=== PATIENT | male | born 1940 | race Caucasian/White ===

== ENCOUNTER 2016-09-07 01:39 | Inpatient (IN) | payer OTHER ==
[~2016-09-07] VITALS: Ht 177.8 cm; Wt 83.9 kg
--- NOTE | ~2016-09-07 | HC ---
[facility] [place] [address] CONSULTATION Name: JOSE VELIZ Shavon Room #: 430-P [facility]..#: [id number] Admission: 09/07/16 Attend Phys: Tao Colmenares Discharge: 09/15/16 Date of : 44 Report #: [id number] THIS REPORT FOR: //name// CC: Tao Olivareselle Nubia DATE OF SERVICE: 09/10/2016 CHIEF COMPLAINT: Abdominal pain. REASON FOR CONSULTATION: Gallstones. HISTORY OF PRESENT ILLNESS: The patient is a very pleasant 76-year-old gentleman, who was admitted on 09/07/2016 with upper abdominal pain. He has previous history of right-sided colon cancer, status post right hemicolectomy approximately one year ago by Dr. Herring. The patient did not require adjuvant chemotherapy. He was scheduled to undergo colonoscopy in the near future was Dr. Denson with whom he follows. Upon admission, the patient had reported constant abdominal pain for approximately one week as well as nausea and emesis. He did complain of some loose stools, which he reports are chronic for him and he has had a loose stool for the most part since his right hemicolectomy one year ago. The patient had been placed on Cipro by primary care physician, the patient had denied fevers, chills, nausea, chest pain, shortness of breath, productive cough or hemoptysis. During his workup on this admission, he had undergone CT scan of the abdomen and pelvis with contrast. This showed surgical changes consistent with hemicolectomy, moderate stool was noted in the transverse colon, small hiatal hernia was noted, mild ileus was suggested, descending colon and sigmoid colon were noted to be decompressed. The patient was noted to have a mild leukocytosis of 12.4 thousand upon admission. Hemoglobin was 13.7, platelets are 175. In the process of his workup, C. difficile toxin was tested on 09/08/2016. This was positive for C. difficile colitis. He was also noted to be campylobacter antigen positive. Gastric biopsies had shown mild gastritis. The patient was placed on oral vancomycin and kept on IV Cipro. Also during his workup, he had undergone abdominal ultrasound, which showed cholelithiasis without bile duct dilatation. No pericholecystic fluid was noted. No thickening of the gallbladder wall was noted. Common bile duct measured up to 0.69 cm. No free fluid was noted. General Surgery was consulted regarding the gallstones and potential for cholecystitis. PAST MEDICAL HISTORY: Positive for hypertension, hyperlipidemia, gastroesophageal reflux disease, right-sided colon cancer, status post right hemicolectomy in September [address] Herring. The patient also has history of upper midline ventral incisional hernia, which is symptomatic, this has been observed by the patient and his surgeon and there had been discussion whether this would be repaired at some point in the future, history of small hiatal hernia. Positive for gastroesophageal reflux disease, hyperlipidemia, history [address] [address] CONSULTATION Name: JOSE VELIZ Room #: 430-P [facility] IN .R.#: [id number] Admission: 09/07/16 Attend Phys: Tao Colmenares Discharge: 09/15/16 Date of : 44 Report #: [id number] of skin cancer. ALLERGIES: Include BUTALBITAL, HYDROCODONE, METHYLPREDNISOLONE, TRAMADOL. HOME MEDICATIONS: Included Tylenol, lisinopril, aspirin, multivitamin, vitamin C, omeprazole, Motrin. PAST SURGICAL HISTORY: Positive for right hemicolectomy in September 2015 with primary anastomosis, right shoulder surgery, sinus surgery, right testicular biopsy, wisdom teeth extraction. FAMILY HISTORY: Father with history of colon cancer. Maternal history of gallbladder issues. SOCIAL HISTORY: Negative for tobacco, ETOH or drug use. REVIEW OF SYSTEMS: GENERAL: No fevers, chills or unwanted weight loss. HEENT: No dysphagia or odynophagia. Positive for headache. CARDIOVASCULAR: No chest pain or palpitation. PULMONARY: No productive cough, no hemoptysis. GASTROINTESTINAL: Positive for upper abdominal pain, nausea and vomiting. Negative for constipation, hematochezia or melena. History of chronic loose stools reported by the patient. MUSCULOSKELETAL: Positive for back pain. Negative for joint swelling. NEUROLOGIC: Negative for focal tingling, weakness or numbness. CUTANEOUS: Negative for rashes or skin lesions. ENDOCRINE: No heat or cold intolerance. HEMATOLOGIC: No easy bruising or spontaneous epistaxis. PHYSICAL EXAMINATION: GENERAL: The patient is awake, alert and oriented. He is in no acute distress. He is appropriate of conversation and fluent of speech. Normal mood and affect. HEENT: Head is atraumatic and normocephalic. Oral cavity: Shows mucosa that is slightly dry. No icterus is appreciated. CRANIAL NERVES: Intact and symmetric bilateral. NECK: Supple, without lymphadenopathy. LUNGS: Clear to auscultation. HEART: Regular, without murmur. ABDOMEN: Soft and mildly tender to palpation in the upper midline, right upper quadrant and left upper quadrant. No rebound or guarding is appreciated. No García sign, well-healed midline incision with reproducible ventral hernia with Valsalva. This is easily reducible and nontender to palpation at this time. EXTREMITIES: Well-perfused. No clubbing, cyanosis or edema. LABORATORY STUDIES: Reviewed. White count of 9.4 thousand at this time, hemoglobin 12.6, platelets of 191. Creatinine of 1.0, BUN of 14, sodium 140, potassium 3.8. Other laboratory studies as described in history of present illness. IMPRESSION: 1. 76-year-old male patient with newly diagnosed Clostridium [facility] [address] [place] [address] CONSULTATION Name: JOSE VELIZ Shavon Room #: 430-P [facility] IN ..#: [id number] Admission: 09/07/16 Attend Phys: Tao Colmenares Discharge: 09/15/16 Date of : 42 Report #: [id number] difficile colitis, with previous history of right-sided colon cancer, status post right hemicolectomy one year ago. Gallstones noted on ultrasound, although no pericholecystic fluid or gallbladder wall thickening and normal white blood cell count at this time. Low index of suspicion for acute cholecystitis given these above-mentioned findings. We will obtain PIPIDA scan to evaluate for filling of the gallbladder with nuclear radiotracer, which would essentially rule out cholecystitis. 2. Should the patient have persistent right upper quadrant pain once Clostridium difficile colitis has been fully treated, would consider evaluation as an outpatient for potential cholecystectomy. PIPIDA scan should yield excellent information as far as whether this would be beneficial. No plan for immediate surgical intervention in this case. Consultation very much appreciated. We will continue to follow closely and make further recommendations based upon clinical status and laboratory studies. <ELECTRONICALLY SIGNED> By: Mika Barrera MD 09/22/16 1007 1612 2313 Mika Barrera MD /jono
--- NOTE | ~2016-09-07 | S ---
[facility] [place] [address] SURGICAL PATH RPT PROCEDURE Name: NATHANAEL FLORES Room #: 219-P ADM IN M.R.#: [id number] Admission: 09/07/16 Date of : 42 Discharge: Report #: [id number] Path Case #: [id number] PATHOLOGY REPORT COLLECTION DATE: 09/08/2016 RECEIVED DATE: 09/08/2016 SUBMITTING PHYS: Dr. Mayito Pang OTHER PHYS: Dr. Tao Delacruz SPECIMEN(S) RECEIVED: A.Bx gastritis B.Polyps rectum * * * * * * * * * * * * FINAL DIAGNOSIS: A. Gastric mucosa, gastritis, endoscopic biopsy: - Mild reactive gastropathy. - Negative for intestinal metaplasia or atrophy. - Negative for Helicobacter pylori. B. Polyps x 2, rectum, endoscopy biopsy: - Hyperplastic polyps. - Negative for dysplasia. COMMENT: Helicobacter pylori immunohistochemical stain performed on block A1 negative. (IUV:all; d/t: 09/09/2016) PATHOLOGIST: Lorri Nieto M.D. REPORT ELECTRONICALLY SIGNED BY: Lorri Nieto M.D. DATE/TIME: 09/09/2016 15:36 * * * * * * * * * * * * GROSS PATHOLOGY: A. Received in formalin labeled "Nathanael Flores, biopsy gastritis," are three segments of rojas soft tissue measuring 1.0 x 0.9 x 0.2 cm in aggregate dimensions and ranging from 0.4 to 0.5 cm in maximum dimension. The specimen is submitted entirely in cassette A1. B. Received in formalin labeled "Nathanael Flores, polyps rectum 2," are seven segments of rojas soft tissue measuring 1.0 x 1.0 x 0.2 cm in aggregate dimensions and ranging from 0.2 to 0.4 cm in maximum dimension. The specimen is submitted entirely in cassette B1. (CAA; 09/08/2016) [facility] [place] [address] SURGICAL PATH RPT PROCEDURE Name: NATHANAEL FLORES Room #: 219-P ADM IN .R.#: [id number] Admission: 09/07/16 Date of : 44 Discharge: Report #: [id number] Path Case #: [id number] CLINICAL HISTORY: Abdominal pain, anemia A: R/O H. pylori INITIAL CPT CODE(S): A; 04371, 76667 B; 10765 Professional services performed by [facility] at [address] , [place] [address] Technical services performed by [facility] at [address] [place] [address], [address], [place] [address]. [facility] [address] PHONE: [phone] DIRECTOR: Jaspal Quinn M.D. * * * END OF REPORT * * *
--- NOTE | ~2016-09-07 | P ---
[facility] [place] [address] PROCEDURE REPORT Name: JOSE VELIZ Room #: 219-P [facility] IN M.R.#: [id number] Admission: 09/07/16 Attend Phys: Tao Colmenares Discharge: Date of : 42 Report #: [id number] THIS REPORT FOR: //name// CC: Jonas Delacruz MD DATE OF SERVICE: 09/08/2016 PROCEDURE PERFORMED: Upper endoscopy with biopsies. HISTORY OF PRESENT ILLNESS: The patient is a 76-year-old male who was admitted with abdominal pain. He has a previous history of colon cancer, status post right hemicolectomy. He is followed by Dr. Jonas Denson. He was actually scheduled for a 1 year followup colonoscopy tomorrow. The patient reports increasing bloating over the last several weeks as well as back pain, one episode of nausea and vomiting. CT scan of the abdomen and pelvis here shows fluid filled small bowel. Descending and sigmoid colon are decompressed. Mucosal edema cannot be completely excluded. Plan is for EGD and colonoscopy today. DESCRIPTION OF PROCEDURE: The risks and benefits of the procedure were explained to the patient, those risks including but not limited to bleeding, perforation, the risk of sedation. He understood these risks and gave informed consent. Sedation was given using propofol per anesthesia. Next, using a standard StrataCloudinon upper endoscope, the scope was placed in the patient's mouth and advanced under direct vision through the esophagus, stomach and into the second portion of the duodenum. The larynx was normal in appearance. The upper mid esophagus was normal. In the distal esophagus, there was evidence of grade A erosive esophagitis. Upon entering the stomach, a small hiatal hernia was noted. There was a mild gastritis noted in the gastric body. Biopsies were obtained to rule out H. pylori. The pylorus was normal and patent. The duodenal bulb, first and second portion were all normal. The scope was then withdrawn and the procedure terminated. The patient tolerated the procedure well. IMPRESSION: 1. Grade A erosive esophagitis. 2. Small hiatal hernia. 3. Mild gastritis. RECOMMENDATIONS: 1. Await biopsy results. 2. We will start daily PPI therapy. [address] [address] PROCEDURE REPORT Name: JOSE VELIZ Shavon Room #: 219-P [facility] IN M.R.#: [id number] Admission: 09/07/16 Attend Phys: Tao Colmenares Discharge: Date of : 42 Report #: [id number] 3. We will proceed with colonoscopy next today. Thank you for allowing me to participate in his care. <ELECTRONICALLY SIGNED> By: Mayito Pang MD 09/08/16 1937 1257 1402 Mayito Pang MD /nt
--- NOTE | ~2016-09-07 | P ---
[facility] [place] [address] PROCEDURE REPORT Name: JOSE VELIZ Room #: 219-P [facility] IN M.R.#: [id number] Admission: 09/07/16 Attend Phys: Tao Colmenares Discharge: Date of : 42 Report #: [id number] THIS REPORT FOR: //name// CC: Jonas Delacruz MD DATE OF SERVICE: 09/08/2016 PROCEDURE PERFORMED: Colonoscopy with biopsies. HISTORY OF PRESENT ILLNESS: The patient is a 76-year-old male with abdominal pain, bloating, previous history of colon cancer, status post right hemicolectomy last year. He was actually scheduled for an outpatient [address] Denson scheduled for tomorrow. A CT scan of the abdomen and pelvis here shows changes consistent with right hemicolectomy, small bowel fluid filled loops, descending and sigmoid colon are decompressed. Mucosal edema cannot be completely excluded. Plan is for colonoscopy. Of note, Campylobacter just came back positive from a stool study this morning. The patient is on Flagyl and Cipro at this time. DESCRIPTION OF PROCEDURE: The risks and benefits of the procedure were explained to the patient, those risks are including but not limited to bleeding, perforation, and the risk of sedation. He understood these risks and gave informed consent. Sedation was given using propofol per anesthesia. Next, a digital rectal exam was initially performed, which was normal. Next, using a standard Fujinon colonoscope, the scope was placed in the patient's anus and advanced under direct vision into the right colon, at which point, surgical anastomosis was noted. This was well healed and widely patent. The remaining transverse colon was normal. There was no evidence of colitis or inflammation throughout the exam today. The descending and sigmoid colon were normal. In the rectum, 2 polyps were noted, one was 3 mm in size and the other was 5, both removed by cold forceps. On retroflexion, small nonbleeding internal hemorrhoids were noted. Again, no colitis was noted throughout the exam today. The scope was then withdrawn, and the procedure terminated. The patient tolerated the procedure well. IMPRESSION: 1. Surgical changes of right hemicolectomy noted. Anastomosis widely patent. 2. Two rectal polyps. 3. Small internal hemorrhoids. 4. Otherwise, normal colonoscopy. RECOMMENDATIONS: [address] [address] PROCEDURE REPORT Name: JOSE VELIZ Shavon Room #: 219-P [facility] IN M.R.#: [id number] Admission: 09/07/16 Attend Phys: Tao Colmenares Discharge: Date of : 42 Report #: [id number] 1. Await biopsy results. 2. Consider repeat colonoscopy in 1-2 years with history of colon cancer and polyps. 3. Continue Cipro. I spoke with Dr. Denson to give him update on the patient's results. It appears he may have had C. diff. recently as an outpatient. C. diff. stool study is pending here; however, the patient is on Flagyl and will continue this. Thank you for allowing me to participate in his care. <ELECTRONICALLY SIGNED> By: Mayito Pang MD 09/08/16 1937 1300 1829 Mayito Pang MD /nt
--- NOTE | ~2016-09-07 | H ---
[facility] [place] [address] HISTORY AND PHYSICAL Name: JOSE VELIZ Room #: 430-P [facility] IN M.R.#: [id number] Admission: 09/07/16 Attend Phys: Tao Colmenares Discharge: 09/15/16 Date of : 42 Report #: [id number] THIS REPORT FOR: //name// CC: Tao Olivareselle Nubia DATE OF SERVICE: 09/07/2016 TYPE OF DICTATION: Admission H and P after [id number] encounter. CHIEF COMPLAINT: Abdominal pain. HISTORY OF PRESENT ILLNESS: This is a 76-year-old male who presented to the ER complaining of lower abdominal pain, which started one week ago. He had one attack of abdominal pain a week ago, then it resolved completely and it recurred yesterday. He rates the pain as 9/10. It looks like sharp pain sometimes, sometimes ____ pain. He had one episode of emesis on Tuesday. He denies any constipation or diarrhea or any more nausea. The patient had a CT done 4 days ago. The patient has a history of colon cancer and has had a hemicolectomy done by Dr. Herring a year ago. The patient denies any fever, chills, diarrhea, shortness of breath, chest pain, headache or any bleeding from anywhere. REVIEW OF SYSTEMS: Except that mentioned in the HPI, all other systems are negative. PAST MEDICAL HISTORY: Include: 1. Hypertension. 2. Hyperlipidemia. 3. GERD. PAST SURGICAL HISTORY: Includes: 1. Right shoulder ____ biopsy, benign. 2. Colonoscopy. 3. Right hemicolectomy secondary to colon cancer. 4. Skin cancer. MEDICATIONS: See admission reconciliation sheet. ALLERGIES: He is allergic to HYDROCODONE, METHYLPREDNISOLONE, TRAMADOL and ACETAMINOPHEN which can cause some headaches. SOCIAL HISTORY: He does not drink or smoke. He does not use any recreational drugs. PHYSICAL EXAMINATION: GENERAL: He is alert and oriented, not in acute distress. [address] [address] HISTORY AND PHYSICAL Name: JOSE VELIZ Room #: [address] [place] [address].#: [id number] Admission: 09/07/16 Attend Phys: Tao Colmenares Discharge: 09/15/16 Date of : 42 Report #: [id number] VITAL SIGNS: Blood pressure is 159/87, temperature 36.8, pulse 74 and respirations 16. HEENT: PERRLA. Intact extraocular muscles. No icterus. NECK: Supple. No JVD, no bruit, no thyroid. CHEST: Good air entry both sides. Normal respiratory effort. CARDIOVASCULAR: Regular rate and rhythm. No murmur, rub or gallop. ABDOMEN: Lax, nontender, positive bowel sounds, no organomegaly appreciated. Scar of previous operation. EXTREMITIES: No cyanosis, clubbing or edema. NEUROLOGIC: Cranial nerves 2-12 are intact. No focal neurological signs. SKIN: Warm and dry. No rash or ulcers. PSYCHIATRIC: Normal affect, mood and judgment. LABORATORY DATA: His sodium is 137, potassium 4.2, chloride 100, carbon dioxide 29, BUN 17, creatinine 1.2, glucose 111, calcium 8.6 and lactic acid 0.6. LFTs are within normal limits. White count 12.4, hemoglobin 13.7, hematocrit 41.7 and normal differential. UA is negative. DIAGNOSTIC DATA: CT abdomen and pelvis: Colitis and enlarged prostate. ASSESSMENT AND PLAN: 1. Abdominal pain. Etiology may be colitis ____ CT, so we are going to keep him on clear liquids for now. Give him IV fluids and IV antibiotics for the colitis. The patient is going to be consulted with gastroenterology also. 2. Acute tubular necrosis secondary to I think maybe dehydration. Creatinine is 1.2, so we are going to hydrate him and follow his kidney function. 3. High blood pressure. We are going to continue his home medicines for that. 4. Hyperlipidemia. We are going to continue his statins. There are no side effects from the statins for now. 5. Gastroesophageal reflux disease. The patient is going to be on proton pump inhibitor. 6. The patient is a full code. 7. Gastrointestinal and deep venous thrombosis prophylaxis. <ELECTRONICALLY SIGNED> By: Mary Lou Anton MD 09/16/16 1708 0828 [id number] Mary Lou Anton MD /nt
[~2016-09-07 01:39] MED LIST: ASPIR 8181 MG PO; CENTRUM SILVER1 EAC2 PO; COMPAZINE10 MG PO; HYDROCODONE-AP1 EAC6 PO; IBUPROFEN 200200 M1 PO; LISINOPRIL2.5 MG PO; PRILOSEC20 MG PO; VITAMINC500 PO
[2016-09-07 01:42] VITALS: BP 159/87
[2016-09-07 02:23] LABS: CALCIUM 8.6 mg/dL (8.5-10.1); CREATININE 1.2 mg/dL (0.6-1.3); POTASSIUM 4.2 mmol/L (3.5-5.1)
[2016-09-07 02:28] LABS: ALBUMIN 3.4 g/dL (3.4-5.0); DIRECT BILIRUBIN 0.2 mg/dL (<0.1-0.3); TOTAL BILIRUBIN 0.8 mg/dL (<0.1-1.0); TOTAL PROTEIN 7.2 g/dL (6.4-8.2)
[2016-09-07 02:30] LABS: HEMATOCRIT 41.7 % (42.0-52.0); HEMOGLOBIN 13.7 gm/dL (14.0-18.0); MCH 30.4 pg (26.0-34.0); MCHC 32.8 % (28.0-37.0); MCV 92.8 fL (80.0-100.0); PLATELET COUNT 175 thou/uL (150-400); RDW 12.5 % (10.5-14.5); WBC 12.4 thou/uL (4.0-11.0)
[2016-09-07 02:31] LABS: MANUAL DIFF YES
[2016-09-07 03:08] LABS: ABSOLUTE NEUTROPHILS 7.3 thou/uL (1.4-8.2); TOTAL CELL COUNT 100
[2016-09-07 03:25] LABS: URINE BILIRUBIN NEGATIVE (Negative); URINE BLOOD NEGATIVE (Negative); URINE COLOR YELLOW; URINE GLUCOSE-RANDOM* NEGATIVE (Negative); URINE KETONES NEGATIVE (Negative); URINE NITRITE NEGATIVE (Negative); URINE PROTEIN (DIPSTICK) NEGATIVE (Negative); URINE SPECIFIC GRAVITY 1.015 (1.003-1.035); URINE UROBILINOGEN 0.2 E.U./dl (0.2-1.0)
[2016-09-07 04:51] VITALS: BP 145/72
[2016-09-07 05:29] VITALS: BP 146/78
[2016-09-07] MEDS ORDERED: TYLENOL325 MG PO (05:34)
[2016-09-07 08:00] VITALS: BP 151/81
[2016-09-07 10:45] VITALS: BP 156/85
[2016-09-07 19:18] VITALS: BP 144/78
[2016-09-08 03:12] LABS: HEMATOCRIT 38.2 % (42.0-52.0); HEMOGLOBIN 12.8 gm/dL (14.0-18.0); MCH 30.5 pg (26.0-34.0); MCHC 33.4 % (28.0-37.0); MCV 91.4 fL (80.0-100.0); RBC 4.19 mil/uL (4.50-6.00); RDW 12.7 % (10.5-14.5); WBC 10.8 thou/uL (4.0-11.0)
[2016-09-08 03:29] LABS: ALBUMIN 2.8 g/dL (3.4-5.0); CALCIUM 8.4 mg/dL (8.5-10.1); POTASSIUM 3.9 mmol/L (3.5-5.1); TOTAL BILIRUBIN 1.1 mg/dL (<0.1-1.0); TOTAL PROTEIN 6.3 g/dL (6.4-8.2)
[2016-09-08 04:23] VITALS: BP 125/60
[2016-09-08 08:15] VITALS: BP 115/70
[2016-09-08 16:40] VITALS: BP 127/65
[2016-09-08 19:48] VITALS: BP 117/63
[2016-09-09 00:09] VITALS: BP 124/63
[2016-09-09 04:20] VITALS: BP 131/65
[2016-09-09 08:49] VITALS: BP 142/72
[2016-09-09 20:18] VITALS: BP 121/64
[2016-09-10 04:56] VITALS: BP 125/73
[2016-09-10 08:05] VITALS: BP 117/59
[2016-09-10 09:34] LABS: HEMATOCRIT 38.3 % (42.0-52.0); HEMOGLOBIN 12.6 gm/dL (14.0-18.0); MANUAL DIFF YES; MCH 30.4 pg (26.0-34.0); MCHC 32.9 % (28.0-37.0); MCV 92.5 fL (80.0-100.0); PLATELET COUNT 191 thou/uL (150-400); RBC 4.14 mil/uL (4.50-6.00); RDW 12.8 % (10.5-14.5); WBC 9.4 thou/uL (4.0-11.0)
[2016-09-10 09:44] LABS: POTASSIUM 3.8 mmol/L (3.5-5.1)
[2016-09-10 10:04] LABS: ABSOLUTE NEUTROPHILS 7.1 thou/uL (1.4-8.2); PLATELET ESTIMATE NORMAL; TOTAL CELL COUNT 100
[2016-09-10 11:55] VITALS: BP 124/64
[2016-09-10 16:30] VITALS: BP 137/70
[2016-09-10 21:42] VITALS: BP 140/58
[2016-09-11 05:03] LABS: HEMATOCRIT 38.7 % (42.0-52.0); HEMOGLOBIN 12.8 gm/dL (14.0-18.0); MCH 30.7 pg (26.0-34.0); RBC 4.16 mil/uL (4.50-6.00); RDW 12.6 % (10.5-14.5); WBC 10.3 thou/uL (4.0-11.0)
[2016-09-11 05:36] LABS: CALCIUM 8.4 mg/dL (8.5-10.1); POTASSIUM 4.1 mmol/L (3.5-5.1)
[2016-09-11 08:30] VITALS: BP 113/49
[2016-09-11 15:35] VITALS: BP 128/58
[2016-09-11 20:03] VITALS: BP 120/62
[2016-09-12 03:31] VITALS: BP 123/67
[2016-09-12 04:47] LABS: HEMATOCRIT 36.5 % (42.0-52.0); HEMOGLOBIN 12.2 gm/dL (14.0-18.0); MCH 30.2 pg (26.0-34.0); MCHC 33.4 % (28.0-37.0); MCV 90.5 fL (80.0-100.0); RBC 4.04 mil/uL (4.50-6.00); RDW 12.8 % (10.5-14.5); WBC 9.8 thou/uL (4.0-11.0)
[2016-09-12 05:08] LABS: CALCIUM 8.3 mg/dL (8.5-10.1); POTASSIUM 4.1 mmol/L (3.5-5.1)
[2016-09-12 09:36] VITALS: BP 127/59
[2016-09-12 16:15] VITALS: BP 156/64
[2016-09-12 20:27] VITALS: BP 120/59
[2016-09-13 08:30] VITALS: BP 109/59
[2016-09-14 04:00] VITALS: BP 125/65
[2016-09-14 07:19] VITALS: BP 13/78
[2016-09-14 17:15] VITALS: BP 126/70
[2016-09-14 20:30] VITALS: BP 137/77
[2016-09-15 04:30] VITALS: BP 128/62
[2016-09-15 07:57] VITALS: BP 128/72
[2016-09-15] MEDS ORDERED: VANCOMYCIN100 MG/M1 PO (10:50)
[2016-09-15] MEDS ORDERED: REGLAN 5 MG TAB5 MG PO (10:51)
[2016-09-15] MEDS ORDERED: FLORANEX PACKET1 GM PO (10:51)
[2016-09-15 11:08] VITALS: BP 128/72
[2016-09-15 11:57] VITALS: BP 128/72
[2016-09-15 16:06] VITALS: BP 128/72
== END 2016-09-15 16:00 | disposition home or self-care (01) | DRG 871 ==
LOC: ER 01:39 → EROBS 04:42 → 2N 04:42 → 4E 09-13 16:03
PROVIDERS: Emergency Medicine; Family Medicine
PROC: 0DB68ZX Excision of Stomach, Via Natural or Artificial Opening Endoscopic, Diagnostic (ICD-10-PCS; principal; 2016-09-08)
PROC: 0DBP8ZX Excision of Rectum, Via Natural or Artificial Opening Endoscopic, Diagnostic (ICD-10-PCS; principal; 2016-09-08)
DX: A41.9 Sepsis, unspecified organism (principal); N17.0 Acute kidney failure with tubular necrosis; A04.7 Enterocolitis due to Clostridium difficile; K56.7 Ileus, unspecified; K22.10 Ulcer of esophagus without bleeding; A04.5 Campylobacter enteritis; K44.9 Diaphragmatic hernia without obstruction or gangrene; I10 Essential (primary) hypertension; K29.70 Gastritis, unspecified, without bleeding; K21.0 Gastro-esophageal reflux disease with esophagitis; K62.1 Rectal polyp; E86.0 Dehydration; E78.5 Hyperlipidemia, unspecified; K64.8 Other hemorrhoids; K31.84 Gastroparesis; I80.8 Phlebitis and thrombophlebitis of other sites; N40.0 Benign prostatic hyperplasia without lower urinary tract symptoms; K43.9 Ventral hernia without obstruction or gangrene; E78.00 Pure hypercholesterolemia, unspecified; Z85.828 Personal history of other malignant neoplasm of skin; Z90.49 Acquired absence of other specified parts of digestive tract; Z85.038 Personal history of other malignant neoplasm of large intestine; Z87.891 Personal history of nicotine dependence; Z88.1 Allergy status to other antibiotic agents; Z88.8 Allergy status to other drugs, medicaments and biological substances; Z80.0 Family history of malignant neoplasm of digestive organs; Z83.79 Family history of other diseases of the digestive system
CPT/HCPCS: 10194; 10783; 62110; 62900

== ENCOUNTER 2017-09-04 08:19 | Observation (INO) | payer OTHER ==
[~2017-09-04] VITALS: Ht 177.8 cm; Wt 86.2 kg
--- NOTE | ~2017-09-04 | H ---
[facility] [place] [address] HISTORY AND PHYSICAL Name: JOSE VELIZ Room #: 408-P [facility]#: [id number] Admission: 09/04/17 Attend Phys: Scott Redd MD Discharge: Date of : 42 Report #: [id number] THIS REPORT FOR: //name// CC: Frances Redd DATE OF SERVICE: 09/04/2017 CHIEF COMPLAINT: Abdominal pain. HISTORY OF PRESENT ILLNESS: The patient is a 77-year-old male with history of hypertension, history of C. diff in the past and cholelithiasis, presented to the Emergency Room complaining of abdominal pain. Pain started at around 5:00 p.m. yesterday. Pain is primarily in his right upper quadrant and epigastric area. It is associated with mild nausea, but no vomiting. The patient denies any diarrhea, no fever or chills. Workup in the Emergency Room included a CT of the abdomen and pelvis and an ultrasound. Ultrasound showed cholelithiasis and mild gallbladder wall thickening. The patient was admitted with C. diff in 09/2016. He had a PIPIDA scan at that time, which showed poor visualization of the gallbladder. The patient was recommended for outpatient followup with Dr. Barrera. The patient was also treated for C. diff at that time with p.o. vancomycin. PAST MEDICAL HISTORY: Significant for: 1. Hypertension. 2. Dyslipidemia. 3. Gastroesophageal reflux disease. PAST SURGICAL HISTORY: Significant for colonoscopy, right hemicolectomy, history of skin cancer, right shoulder biopsy. ALLERGIES: ALLERGIC TO HYDROCODONE, METHYLPREDNISOLONE, TRAMADOL AND ACETAMINOPHEN, WHICH CAN CAUSE HEADACHE. HE IS ALSO ALLERGIC TO BUTALBITAL. SOCIAL HISTORY: No smoking, alcohol abuse, or illicit drug abuse. HOME MEDICATIONS: Please look at the nursing documentation. FAMILY HISTORY: Noncontributory. REVIEW OF SYSTEMS: CONSTITUTIONAL: No recent weight loss or weight gain. No fever or chills. EYES: No change in vision. THROAT: Denies any sore throat. CARDIOVASCULAR: No chest pain, dizziness, palpitations. [facility] [address] [place] [address] HISTORY AND PHYSICAL Name: JOSE VELIZ Shavon Room #: 408-P [facility]#: [id number] Admission: 09/04/17 Attend Phys: Scott Redd MD Discharge: Date of : 44 Report #: [id number] RESPIRATORY: No cough or expectoration. GASTROINTESTINAL: As above. GENITOURINARY: No dysuria, hematuria. NEUROLOGIC: No focal numbness or weakness of the extremities. PSYCHIATRIC: No anxiety or depression. A 12-point review of systems is negative other than the positives and negatives dictated in the history of present illness and the review of systems. PHYSICAL EXAMINATION: VITAL SIGNS: Reviewed. Blood pressure is 128/70, blood pressure is 165/85, heart rate of 90 per minute, afebrile. GENERAL: The patient is awake and alert, not in acute respiratory distress. HEENT: Eyes: Pupils equal, reactive to light, nonicteric conjunctivae. Throat appears normal. NECK: Supple, no JVD, no bruit, no lymphadenopathy. CARDIOVASCULAR SYSTEM: S1, S2, negative S3, no murmur. CHEST: Bilateral air entry present. Clear on auscultation. ABDOMEN: Soft, bowel sounds present, no mass, no organomegaly. There is tenderness in the right upper quadrant, no rebound tenderness. PERIPHERY: No pedal edema. No calf tenderness. Dorsalis pedis 1+. NEUROLOGICAL: No gross motor or sensory deficit. LABORATORY DATA: Reviewed. White count is 9.5, normal hemoglobin, hematocrit and platelets. His chemistry showed sodium of 135, BUN and creatinine are within normal limit. AST and ALT are within normal limit. Lipase is 155. CT of the abdomen and pelvis showed right hemicolectomy, moderate stool in the transverse colon, multiple small lesions in the liver suggesting hemangioma. Gallbladder is partially contracted and cooney appear slightly thickened. Ultrasound of the gallbladder showed gallstones, mildly contracted, slight thickening of the gallbladder wall. There is no evidence of any biliary obstruction. There are multiple hepatic cysts. ASSESSMENT AND PLAN: 1. Abdominal pain, likely secondary to cholelithiasis, rule out cholecystitis. The patient will be continued on pain control. We will keep him on clear liquid diet. We will continue on IV hydration and IV antibiotics. Surgery and GI will be consulted. 2. Deep venous thrombosis prophylaxis. Sequential compression devices on the legs for deep venous thrombosis prophylaxis. 3. Hypertension. The patient will be continued on his present home medication, lisinopril. 4. History of Clostridium difficile in the past. The patient will be placed on probiotic. [address] [address] HISTORY AND PHYSICAL Name: JOSE VELIZ Room #: 408-P [facility] Silvia Rodriguez#: [id number] Admission: 09/04/17 Attend Phys: Scott Redd MD Discharge: Date of : 44 Report #: [id number] Treatment plan has been explained to the patient and family in detail. <ELECTRONICALLY SIGNED> By: Scott Redd MD 09/05/17 1248 1320 1343 Scott Redd MD /nt
--- NOTE | ~2017-09-04 | HC ---
[facility] [place] [address] CONSULTATION Name: JOSE VELIZ Room #: [facility] Silvia Rodriguez#: [id number] Admission: 09/04/17 Attend Phys: Scott Redd MD Discharge: 09/05/17 Date of : 44 Report #: [id number] THIS REPORT FOR: //name// CC: Jonas Redd REASON FOR CONSULTATION: The patient is a 77-year-old male with abdominal pain. HISTORY OF PRESENT ILLNESS: This patient was at [facility] about a year ago and had abdominal pain and evidence of cholelithiasis. A PIPIDA scan was done a year or so ago, which did not fill. He was to follow up with Dr. Barrera as an outpatient, but did not do so because his symptoms resolved and did not recur at that time. He reports he has been well until yesterday when after eating, he developed mid abdominal pain. The pain became quite intense and he presented to the Emergency Room at [facility] where he was placed on an observation unit. He initially had a CT, which revealed some small liver lesion suggestive of hemangioma or cyst which were stable from study a year ago. He had a contracted gallbladder with thickened cooney and was thought to be small stones. Ultrasound was completed after the CT and revealed a contracted gallbladder with multiple stones and slight thickening of the abdominal wall. Overnight, the patient is improved and this morning, he has not had any abdominal pain. PAST MEDICAL HISTORY: He does have a history of reflux disease and takes omeprazole 20 mg daily and has no reflux symptoms at this time. He does not have any dysphagia. He has not had any vomiting or hematemesis. He has not had any rectal bleeding or change in bowel habits. Last colonoscopy was about a year ago. Two small hyperplastic polyps were removed by Dr. Pang. PAST MEDICAL HISTORY: Notable for high blood pressure. He has had elevated lipids, but is not currently on any specific medical therapy. He has also had reflux disease. PAST SURGICAL HISTORY: Right shoulder surgery, biopsy for skin lesion. He has had skin cancer in his right ear surgically managed. He had what sounds like a precancerous lesion with subsequent right hemicolectomy. He does not recall that he was told that it was cancerous. ALLERGIES: HYDROCODONE, METHYLPREDNISOLONE, TRAMADOL, ACETAMINOPHEN, BUTALBITAL. [address] [address] CONSULTATION Name: JOSE VELIZ Room #: 408-P [facility] Silvia Rodriguez#: [id number] Admission: 09/04/17 Attend Phys: Scott Redd MD Discharge: 09/05/17 Date of : 44 Report #: [id number] USUAL HOME MEDICATIONS: Acetaminophen every 4 hours as needed for headaches, vitamin C 500 mg daily, aspirin 81 mg Tuesday, Tuesday and Tuesday, lisinopril 2.5 mg daily, multivitamin daily, omeprazole 20 mg daily. FAMILY HISTORY: Father had colon cancer. He may have an advanced age. The patient does not know his age at the time of diagnosis. SOCIAL HISTORY: He quit smoking in 1966. He does not abuse alcohol. REVIEW OF SYSTEMS: GENERAL: No change in weight, fever or chills. CENTRAL NERVOUS SYSTEM: No focal weakness, numbness, loss of conscious, seizures or strokes. He does have headaches, which may be related to degenerative disease in his neck. HEENT: No change in vision. He does have some difficulty with hearing. No sores in the mouth. PULMONARY: No cough, pneumonia or tuberculosis, former cigarette smoker. CARDIOVASCULAR: No chest pain, chest tightness or palpitations. GASTROINTESTINAL: Abdominal pain and benign liver lesions. Reflux controlled. No rectal bleeding. Right hemicolectomy for neoplastic lesions. GENITOURINARY: Without dysuria, pyuria, kidney stones or kidney tract infections. He did have surgery for testicular lesion in the past. 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 SKIN: Previous skin cancer. No rashes. ENDOCRINE: He does have hyperglycemia, but always has had a normal hemoglobin A1c. No thyroid problems. PSYCHIATRIC: No depression, anxiety or bipolar illness. HEMATOLOGIC: Skin cancer removed. No anemia or bleeding. PHYSICAL EXAMINATION: GENERAL: Well-developed, well-nourished, pleasant male who is awake, alert and oriented, in no acute distress. VITAL SIGNS: Blood pressure 146/65, temperature 97.7, respiratory rate of 20, pulse is 70. HEENT: Anicteric. Pupils equal and round. Oropharynx clear. NECK: Supple. CHEST: Clear. HEART: Regular rate and rhythm, normal S1, normal S2. ABDOMEN: Normal bowel sounds, soft, nontender, without hepatosplenomegaly or masses. RECTAL: Not done. EXTREMITIES: Without cyanosis, clubbing, edema. NEUROLOGIC: Oriented to person, place and time. Moves all 4 extremities well. ASSESSMENT: 1. Abdominal pain, improved. [facility] [address] [place] [address] CONSULTATION Name: JOSE VELIZ Room #: 408-P [facility] Silvia Rodriguez#: [id number] Admission: 09/04/17 Attend Phys: Scott Redd MD Discharge: 09/05/17 Date of : 42 Report #: [id number] 2. Cholelithiasis. 3. Reflux disease, controlled. 4. History of neoplastic colon lesions, status post right hemicolectomy. 5. Headaches, possibly related to degenerative disease in his neck. 6. Family history of colon cancer, father. COMMENT: Discussed with Dr. Griffin Brenner, agree with his recommendations regarding surgery after outpatient colonoscopy: The patient is scheduled for colonoscopy as an outpatient this Tuesday with Dr. Denson. RECOMMENDATION: 1. Agree with advancing diet. 2. Agree with plans to discharge if he does well. 3. Agree with colonoscopy later this week. 4. Agree with cholecystectomy after colonoscopy. <ELECTRONICALLY SIGNED> By: Jesus Manuel Kiran MD 09/08/17 0738 [id number] [id number] Jesus Manuel Kiran MD /nt
--- NOTE | ~2017-09-04 | HC ---
[facility] [place] [address] CONSULTATION Name: JOSE VELIZ Shavon Room #: [address] [place] [address] Silvia Rodriguez#: [id number] Admission: 09/04/17 Attend Phys: Scott Redd MD Discharge: 09/05/17 Date of : 44 Report #: [id number] THIS REPORT FOR: //name// CC: Frances Redd DATE OF SERVICE: 09/04/2017 GENERAL SURGERY CONSULTATION REFERRING PROVIDER: Scott Redd M.D. REASON FOR CONSULT: Abdominal pain. HISTORY OF PRESENT ILLNESS: The patient is a 77-year-old male who was seen 13 months ago by my partner, Dr. Barrera, for complaints of epigastric to right upper quadrant abdominal pain. The patient was found to have a contracted gallbladder and a PIPIDA scan showed poor visualization of the gallbladder, for which he was told to follow up as an outpatient for cholecystectomy for definitive surgical management. Unfortunately, the patient's symptoms resolved and he has had no recurrence since then, so he failed to follow up. The patient does have a past history of colon cancer, for which he underwent a right hemicolectomy and recently has been having recurrent bleeding and is tentatively scheduled to undergo a colonoscopy by Dr. Denson on Tuesday. The patient presented to the emergency room with complaints of recurrent epigastric to right upper quadrant abdominal pain and workup has shown a contracted gallbladder with normal labs and no evidence of acute cholecystitis showing negative sonographic García sign. The patient has just received pain medication and currently is resting comfortably in no distress. PAST MEDICAL HISTORY: GERD, hypertension, hyperlipidemia and precancerous colon lesion. HOME MEDICATIONS: Tylenol, vitamin C, aspirin, lisinopril, multivitamin and omeprazole. ALLERGIES: HYDROCODONE, METHYLPREDNISOLONE, TRAMADOL, ACETAMINOPHEN AND BUTALBITAL. FAMILY HISTORY: Reviewed and noncontributory. SOCIAL HISTORY: The patient does not use tobacco, alcohol or illicit drugs. REVIEW OF SYSTEMS: GENERAL: The patient denies nocturnal fevers or chills. HEENT: No change in vision, change in hearing. [facility] [address] [place] [address] CONSULTATION Name: KERENJOSE Shavon Room #: 408-P [facility]#: [id number] Admission: 09/04/17 Attend Phys: Scott Redd MD Discharge: 09/05/17 Date of : 42 Report #: [id number] NECK: No swelling or difficulty swallowing. HEART: No chest pain, palpitations. LUNGS: No cough or shortness of breath. ABDOMEN: Abdominal pain and mild nausea, but no vomiting. GENITOURINARY: No dysuria or hematuria. ENDOCRINE: No polyuria, polydipsia. HEMATOLOGIC: No history of bleeding or easy bruising. EXTREMITIES: No history weakness or limited range of motion. NEUROLOGIC: No history of syncope or near syncopal episodes. SKIN AND INTEGUMENT: No history of abnormal lesions or moles. PSYCHIATRIC: No history of anxiety or depression. PHYSICAL EXAMINATION: VITAL SIGNS: Temperature 98.0, pulse 71, respirations 20, blood pressure 148/58. He stands 5 feet 10 inches tall and weighs 190 pounds. GENERAL: Alert and oriented, in no acute distress. HEENT: Normocephalic, atraumatic. Pupils equal, round, reactive to light. NECK: Supple, without lymphadenopathy. Trachea midline. HEART: Regular rate and rhythm. LUNGS: Clear to auscultation bilaterally. ABDOMEN: Soft, nontender, nondistended. GENITOURINARY: Normal external male genitalia. EXTREMITIES: No clubbing, cyanosis or edema. Cranial nerves 2-12 are grossly intact. PSYCHIATRIC: Normal mood and affect. SKIN AND INTEGUMENT: No abnormal lesions or moles. LABORATORY AND X-RAY DATA: CBC shows white blood cell count of 9.5 thousand, hemoglobin 14.4, platelets 163,000. The patient's creatinine is 1.0. Liver function enzymes are normal with an AST of 26, ALT 27, alkaline phosphatase 78 with a total bilirubin of 0.6. Lactic acid normal at 1.1. CT scan of the abdomen and pelvis as per HPI shows previous right hemicolectomy with moderate stool in the transverse colon, multiple hepatic hemangiomas or cysts that are stable and contracted gallbladder. The patient's ultrasound of the abdomen again shows a contracted gallbladder with multiple gallstones, very minimal thickening of the gallbladder wall with no surrounding fluid or edema and negative sonographic García sign. No ductal dilatation. ASSESSMENT AND PLAN: A 77-year-old male who presents with what appears to be recurrent biliary colic. In light of the patient's recurrent gastrointestinal bleeding and his scheduled colonoscopy on Tuesday, I would hope that monitoring him over the next day or so with clear liquids and no recurrence of symptoms where he would be able to discharge and proceed with a colonoscopy for his recurrent gastrointestinal bleed prior to proceeding with definitive surgical management in the form of laparoscopic cholecystectomy. That way, if he should necessitate any further colonic intervention that can be done [address] [address] CONSULTATION Name: JOSE VELIZ Room #: [address] [place] [address] Michael#: [id number] Admission: 09/04/17 Attend Phys: Scott Redd MD Discharge: 09/05/17 Date of : 44 Report #: [id number] simultaneously with his cholecystectomy rather than putting him through two separate operations. An extensive detailing of this was provided to the patient and his who agreed to proceed as outlined. I sincerely appreciate this consult. Again, he will be kept overnight with a clear liquid diet and will repeat labs tomorrow and perform serial abdominal exams and all further recommendations will be left in the patient's chart as appropriate. <ELECTRONICALLY SIGNED> By: Griffin Brenner MD, FACS 09/06/17 1301 0809 0831 Griffin Brenner MD, FACS /nt
[~2017-09-04 08:19] MED LIST changes: +FLORANEX PACKET1 GM PO; +PRILOSEC OTC20 MG PO; -PRILOSEC20 MG PO; +REGLAN 5 MG TAB5 MG PO; +TYLENOL325 MG PO; +VANCOMYCIN100 MG/M1 PO
[2017-09-04 08:36] VITALS: BP 165/85
[2017-09-04 09:19] LABS: HEMATOCRIT 42.7 % (42.0-52.0); HEMOGLOBIN 14.4 gm/dL (14.0-18.0); MCH 31.2 pg (26.0-34.0); MCHC 33.8 g/dL (28.0-37.0); MCV 92.3 fL (80.0-100.0); RBC 4.63 mil/uL (4.50-6.00); RDW 12.8 % (10.5-14.5); WBC 9.5 thou/uL (4.0-11.0)
[2017-09-04 09:28] LABS: CALCIUM 9.2 mg/dL (8.5-10.1); POTASSIUM 4.5 mmol/L (3.5-5.1)
[2017-09-04 09:33] LABS: ALBUMIN 3.6 g/dL (3.4-5.0); TOTAL BILIRUBIN 0.6 mg/dL (<0.1-1.0)
[2017-09-04 15:28] VITALS: BP 149/72
[2017-09-04 15:45] VITALS: BP 148/58
[2017-09-04 16:00] VITALS: BP 140/62
[2017-09-04 20:35] VITALS: BP 138/63
[2017-09-05 03:55] VITALS: BP 146/65
[2017-09-05 04:35] LABS: HEMATOCRIT 41.4 % (42.0-52.0); HEMOGLOBIN 13.9 gm/dL (14.0-18.0); MCH 31.1 pg (26.0-34.0); MCHC 33.7 g/dL (28.0-37.0); MCV 92.2 fL (80.0-100.0); PLATELET COUNT 160 thou/uL (150-400); RBC 4.48 mil/uL (4.50-6.00); RDW 12.8 % (10.5-14.5); WBC 8.2 thou/uL (4.0-11.0)
[2017-09-05 04:50] LABS: ALBUMIN 3.2 g/dL (3.4-5.0); CALCIUM 8.6 mg/dL (8.5-10.1); CREATININE 1.1 mg/dL (0.7-1.3); TOTAL BILIRUBIN 1.3 mg/dL (<0.1-1.0); TOTAL PROTEIN 6.3 g/dL (6.4-8.2)
[2017-09-05 05:22] LABS: ABSOLUTE NEUTROPHILS 6.2 thou/uL (1.4-8.2)
[2017-09-05] MEDS ORDERED: FLORANEX GRANU1 EACH PO (12:26)
[2017-09-05] MEDS ORDERED: AUGMENTIN 875-1 EACH PO (12:26)
[2017-09-05] MEDS ORDERED: ACETAMINOPHEN-1 EAC1 PO (12:26)
[2017-09-05 15:13] VITALS: BP 146/60
[2017-09-26] MEDS ORDERED: IBUPROFEN 200200 M1 PO (10:52)
[2017-09-26] MEDS ORDERED: FLORANEX GRANU1 EACH PO (11:07)
== END 2017-09-05 15:55 | disposition home or self-care (01) ==
LOC: ER 08:19 → EROBS 12:39 → 4N 15:38
PROVIDERS: Emergency Medicine; Internal Medicine
DX: K80.20 Calculus of gallbladder without cholecystitis without obstruction (principal); I10 Essential (primary) hypertension; E78.5 Hyperlipidemia, unspecified; K21.9 Gastro-esophageal reflux disease without esophagitis; Z80.0 Family history of malignant neoplasm of digestive organs; Z87.898 Personal history of other specified conditions; Z90.49 Acquired absence of other specified parts of digestive tract; Z87.891 Personal history of nicotine dependence

== ENCOUNTER 2017-09-28 05:19 | Day surgery (SDC) | payer OTHER ==
[~2017-09-28] VITALS: Ht 177.8 cm; Wt 86.6 kg
--- NOTE | ~2017-09-28 | EKG ---
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 : 1940 Requested By: Ezio Delacruz Order Number: [id number] MD: Jono Barry Measurements Intervals [place] Rate: 63 P: 12 MO: 170 QRS: -1 QRSD: 86 T: 48 QT: 372 QTc: 381 Interpretive Statements Sinus rhythm No significant abnormality Compared to ECG 09/25/2015 09:09:05 Myocardial infarct finding no longer present Electronically Signed On 09-28-2017 16:04:39 STORE DETECTIVE by Jono Barry [email or web address] <ELECTRONICALLY SIGNED> By: Jono Barry MD, [facility] 09/28/17 1604 D: [id number] Jono Barry MD, FACC /EPI
--- NOTE | ~2017-09-28 | S ---
[facility] [address] [place] [address] SURGICAL PATH RPT PROCEDURE Name: NATHANAEL FLORES [facility] [id number] Admission: 09/28/17 Date of : 44 Discharge: 09/29/17 Report #: [id number] Path Case #: [id number] PATHOLOGY REPORT COLLECTION DATE: 09/28/2017 RECEIVED DATE: 09/28/2017 SUBMITTING PHYS: Dr. Ezio Delacruz OTHER PHYS: SPECIMEN(S) RECEIVED: A.Gallbladder * * * * * * * * * * * * FINAL DIAGNOSIS: Gallbladder, cholecystectomy: - Moderate chronic cholecystitis. - Cholelithiasis. - Cauterized hepatic parenchyma. (IUV:pit; 09/29/2017) PATHOLOGIST: Lorri Nieto M.D. REPORT ELECTRONICALLY SIGNED BY: Lorri Nieto M.D. DATE/TIME: 09/29/2017 15:33 * * * * * * * * * * * * GROSS PATHOLOGY: Received in formalin labeled "Nathanael Flores and gallbladder," is a intact 5.8 x 2.2 x 1.7 cm, gallbladder with marques purple serosal surfaces. Opening the gallbladder reveals hemorrhagic mucosa and with a wall that ranges from 0.1 up to 0.7 cm (fundus, hepatic aspect). Calculi are present. Tractor Drill Operator sections in A1. (Hepatic aspect inked black) (SWS; 09/28/2017) CLINICAL HISTORY: Gallstone INITIAL CPT CODE(S): A; 76708 Professional services performed by [facility] at [facility] [address] [place] [address] Technical services performed by [facility] at [address] [place] [address]. [facility] [address] [place] [address] SURGICAL PATH RPT PROCEDURE Name: NATHANAEL FLORES Room #: DEP [facility] Michael#: [id number] Admission: 09/28/17 Date of : 42 Discharge: 09/29/17 Report #: [id number] Path Case #: [id number] [address] PHONE: [phone] DIRECTOR: Jaspal Quinn M.D. * * * END OF REPORT * * *
--- NOTE | ~2017-09-28 | O ---
[facility] [place] [address] OPERATIVE REPORT Name: JOSE VELIZ Room #: DEP [facility]#: [id number] Admission: 09/28/17 Attend Phys: Ezio Delacruz MD Discharge: 09/29/17 Date of : 42 Report #: [id number] THIS REPORT FOR: //name// CC: Frances Delacruz DATE OF SERVICE: 09/28/[address] Ezio Delacruz and Dr. Frances Delacruz. PREOPERATIVE DIAGNOSES: Cholelithiasis, cholecystitis, biliary colic. POSTOPERATIVE DIAGNOSES: Cholelithiasis, cholecystitis, biliary colic. PROCEDURE: Laparoscopic cholecystectomy. SURGEON: Ezio Delacruz MD. ANESTHESIA: General. DESCRIPTION OF PROCEDURE: The patient was brought to the operating room and placed on operative table in the supine position. Sequential compression devices were in place for DVT prophylaxis. The patient was given an appropriate preoperative dose of antibiotics. The patient underwent a general endotracheal anesthesia and the abdomen was then prepped and draped in a sterile fashion. Skin and subcutaneous tissue around the umbilicus was then infiltrated with 0.5% Marcaine. A lower vertical midline abdominal incision was performed through his previous incision scar vertically using a #11 scalpel blade. Hemostasis obtained using electrocautery. Dissection was carried down through subcutaneous tissue of the fascia, which was then identified, dissected free, clamped and incised using the curved Carvalho scissors. I was able to enter the abdomen well below the previous fascial hernia repair with mesh. After entering the peritoneum, finger was placed intraabdominally and adhesions were clear around this area. A 0 Vicryl pursestring suture was then placed in the fascia and a 12 mm disposable Melida port was then inserted through the opening and held into place with the balloon port and the pursestring suture. Pneumoperitoneum was obtained to a level of 10-15 mmHg. Laparoscope was inserted through this port and an exploration was performed. There was a single loop of small bowel that was adhesed to the anterior upper midline where the mesh had been placed for the hernia repair. There were a few other adhesions around this area, but otherwise, there were few adhesions. I was able to visualize the right upper quadrant. We were able to clearly and easily place two 5 mm Surgiport under direct visualization after infiltration with 0.5% Marcaine. There was a single adhesion to the anterior abdominal wall that was lysed and allowed better visualization and I was then able see the upper midline and a 12 mm Surgiport [address] [address] OPERATIVE REPORT Name: JOSE VELIZ Room #: DEP [facility]#: [id number] Admission: 09/28/17 Attend Phys: Ezio Delacruz MD Discharge: 09/29/17 Date of : 42 Report #: [id number] was then inserted through this upper midline fascia through the previous incision scar under direct visualization. I was then able to grasp the gallbladder and retract it superiorly and adhesions around the gallbladder were carefully dissected free using the [place] dissector. I was able to get down and after dissecting the adhesions free, I identified the cystic artery, which was clearly identified, dissected free, doubly clipped on each side and divided with the scissors. The cystic duct was then also carefully dissected free using the [place] dissector and I could readily and easily see the junction of the cystic duct and common bile duct. This was clearly identified and the cystic duct was then triply clipped on the common bile duct side, doubly clipped on the gallbladder side and divided with the scissors. The gallbladder was then dissected free from the bed using the hook electrocautery. This was densely adherent to the gallbladder bed, but it was able to be clearly and safely dissected free using the hook electrocautery. Prior to completing the dissection, the gallbladder was retracted superiorly and the bed inspected for hemostasis, which was obtained using the electrocautery and found to be intact. Gallbladder was then transected and brought out through the periumbilical port and sent as specimen to pathology. The port was then returned to the abdomen and the area was then copiously irrigated with warm saline solution, which was suctioned free and hemostasis was checked and found to be intact. The ports were then all removed under direct visualization with hemostasis intact at each port site. Pneumoperitoneum was released and the periumbilical port was then also removed under direct visualization, hemostasis intact at that port site as well. Periumbilical fascia was then closed using the 0 Vicryl pursestring suture. The upper midline fascia was then closed using a [id number] 0 Vicryl suture. Skin was then closed using interrupted vertical mattress 5-0 nylon sutures. The wound was dressed with Band-Aids. The patient was then awakened from the general endotracheal anesthesia, extubated, and taken to recovery room in good condition. Estimated blood loss was approximately 20 mL and the patient tolerated procedure well. All sponge, lap and instrument counts correct times 2. <ELECTRONICALLY SIGNED> By: Ezio Delacruz MD 10/06/17 1548 1357 1509 Ezio Delacruz MD /nt
[~2017-09-28 05:19] MED LIST changes: +ACETAMINOPHEN-1 EAC1 PO; +AUGMENTIN 875-1 EACH PO; +FLORANEX GRANU1 EACH PO
[2017-09-28 09:30] VITALS: BP 120/68
[2017-09-28] MEDS ORDERED: NORCO 5-325 TA1 EACH PO (14:06)
[2017-09-28 17:30] VITALS: BP 140/77
[2017-09-28 18:00] VITALS: BP 141/69
[2017-09-28 18:30] VITALS: BP 134/78
[2017-09-28 19:49] VITALS: BP 117/68
[2017-09-28 23:46] VITALS: BP 119/69
[2017-09-29 04:45] VITALS: BP 111/65
[2017-09-29 07:35] VITALS: BP 107/58
[2017-09-29 08:20] VITALS: BP 111/65
[2017-09-29 09:15] VITALS: BP 111/65
== END 2017-09-29 10:43 | disposition home or self-care (01) ==
LOC: OR 05:19 → TBA 05:19 → OR 13:03 → 4E 17:32 → ENTRNSPT 09-29 09:52 → EDTRNSPTSTS 09-29 09:54 → OR 09-29 10:43
DX: K80.10 Calculus of gallbladder with chronic cholecystitis without obstruction (principal); I10 Essential (primary) hypertension; K21.9 Gastro-esophageal reflux disease without esophagitis; Z85.828 Personal history of other malignant neoplasm of skin; Z85.038 Personal history of other malignant neoplasm of large intestine; Z87.891 Personal history of nicotine dependence; Z98.890 Other specified postprocedural states; Z88.6 Allergy status to analgesic agent; Z88.8 Allergy status to other drugs, medicaments and biological substances; Z79.899 Other long term (current) drug therapy; Z79.82 Long term (current) use of aspirin; Z79.891 Long term (current) use of opiate analgesic
CPT/HCPCS: 50010; 50101; 50411; 50555; 50558; 51474; 51489; 52266; 53314; 56462; 56524; 56525; 56528; 62110; 62900; 64007; 70005